=== PATIENT | male | born 1990 | race Caucasian/White ===

== ENCOUNTER 2018-09-09 09:30 | Emergency (ER) | payer SELFPAY ==
[~2018-09-09] VITALS: Ht 177.8 cm; Wt 84.0 kg
[2018-09-09 09:32] VITALS: BP 142/60; PULSE 64; RESP 16; Ht 177.8 cm; Wt 84.0 kg
[2018-09-09] MEDS ORDERED: ERYT1OIN6 RIGHT EYE (10:53)
[2018-09-09] MEDS ORDERED: IBUP-1542 PO (10:53)
--- NOTE | 2018-09-09 10:57 | ERD ---
ER Documentation Chief Complaint Chief Complaint pt is bib self with c/o contact stuck in right eye since last night HPI 28-year-old male presents with right eye discomfort after feeling he may have a contact lens stuck in his right eye. He feels a sensation in his lower lid. Denies any visual field deficits or discomfort or discharge. He wears soft contact lenses. Denies that contact was broken. ROS All systems reviewed and are negative except as per history of present illness. Medications Home Meds Active Scripts Erythromycin Base (Erythromycin) 1 Gm Oint...g., 1 APPLIC RIGHT EYE QID for 7 Days Prov:AVIS HARPER MD 09/09/18 Ibuprofen* (Motrin*) 600 Mg Tab, 600 MG PO Q6, #15 TAB Prov:AVIS HARPER MD 09/09/18 Allergies Allergies: Coded Allergies: No Known Allergy (Unverified , 09/09/18) FmHx Family History: No diabetes, No coronary disease, No other Physical Exam Vitals Vital Signs Date Temp Pulse Resp B/P (MAP) Pulse Ox O2 O2 Flow FiO2 Time Delivery Rate 09/09/18 98.3 64 16 142/60 98 09:32 (87) Physical Exam Const: No acute distress Head: Atraumatic Eyes: Normal Conjunctiva. Slight scleral redness at 6:00. Eyes Terry and extraocular movements intact. Anterior chambers were normal. FlUORESEIN negative. ENT: Normal External Ears, Nose and Mouth. Neck: Full range of motion. No meningismus. Resp: Clear to auscultation bilaterally Cardio: Regular rate and rhythm, no murmurs Abd: Soft, non tender, non distended. Normal bowel sounds Skin: No petechiae or rashes Back: No midline or flank tenderness Ext: No cyanosis, or edema Neur: Awake and alert Psych: Normal Mood and Affect Results 24 hrs Current Medications Medications Dose Sig/Bruce Start Time Status Last (Trade) Ordered Route PRN Stop Time Admin Dose Reason Admin Irrigating 1 applic ONCE ONCE 09/09/18 Solution RIGHT EYE 11:00 (Eye Wash) 09/09/18 11:01 Procedures/MDM Patient presents with foreign body sensation in the right eye. I am unable to appreciate a foreign body after lid eversion and probing. There is no uptake of fluorescein as well. I was irrigated empirically. Patient had relief with tetracaine drops. Patient may have retained aborted foreign body but I am unable to appreciate . He will be referred to ophthalmology for further evaluation for evaluation of foreign body. Small conjunctival abrasion or foreign body sensation is resolved may be a consideration as well. Patient has no signs or symptoms of visual changes, visual field deficits. There are no signs or symptoms to suggest orbital cellulitis, retinal detachment, optic neuritis, retinal artery ischemia, dendritic lesions, ulcers, threats to vision or additional eye emergencies. Doubt acute glaucoma. Patient will be discharged home with recommendations for primary care and ophthalmology follow- up within the next 1-2 days. They should otherwise return to the ER for persistent or worsening symptoms. Departure Diagnosis: Primary Impression: Eye problem Condition: Stable Patient Instructions: Corneal Injury, Contact Lens Referrals: NO PRIMARY,CARE PHYSICIAN (PCP) [facility] Hours: Mon - Wed 9:00 AM - 5:00 PM Additional Instructions: Unable to appreciate any retained contact lens. May be abrasion. See ophthalmology for further evaluation and treatment. Recheck otherwise for new or worsening symptoms. AVIS HARPER MD Sep 09, 2018 10:57
[2018-09-09] MEDS ORDERED: OPHTHALMIC IRRIG SOLUTION 120 ML RIGHT EYE ONE (11:00)
[2018-09-09] MEDS ORDERED: IBUPROFEN 600 MG TAB PO ONE (11:00)
== END 2018-09-09 11:22 | disposition home or self-care (01) ==
LOC: FTE 09:30
DX: H57.9 Unspecified disorder of eye and adnexa (principal)
CPT/HCPCS: 99283